=== PATIENT | male | born 1995 | race African-American/Black ===

== ENCOUNTER 2020-05-02 06:22 | Emergency (ER) | payer MEDICAID ==
[2020-05-02] MEDS ORDERED: Alum Hydrox/Mag Hydrox/Simeth 15 ML, Lidocaine 2% 5 ML PO ONE ×2 (07:03)
[2020-05-02] MEDS ORDERED: Hydrogen Peroxide 3% Top Soln 473 ML Bottle MUCMEM ONE (07:05)
--- NOTE | 2020-05-02 07:10 | EDM.PDOC ---
ED HPI GENERAL MEDICAL PROBLEM - General Chief Complaint: Gastrointestinal Problem Stated Complaint: VOMITING Time Seen by Provider: 05/02/20 07:00 Source of Information: Reports: Patient - History of Present Illness INITIAL COMMENTS - FREE TEXT/NARRATIVE: Patient is a 25-year-old male who presents today for nausea vomiting. Patient states that last night he drank a large amount of tequila and woke up this morning with stomachaches and vomiting. Patient denies any drug use denies fall and hit his head fevers chills or other complaints. Generalized Pain Score (Numeric/FACES): 5 - Related Data Allergies Allergy/AdvReac Type Severity Reaction Status Date / Time No Known Allergies Allergy Verified 05/02/20 06:46 Home Meds: Home Meds . [No Known Home Meds] 05/02/20 [History] Past Medical History - Past Health History Medical/Surgical History: Denies Medical/Surgical History Social & Family History - Family History Family Medical History: No Pertinent Family History - Tobacco Use Tobacco Use Status *Q: Never Tobacco User Second Hand Smoke Exposure: No - Recreational Drug Use Recreational Drug Use: No ED ROS GENERAL - Review of Systems Review Of Systems: See Below Constitutional: Reports: No Symptoms HEENT: Reports: No Symptoms Respiratory: Reports: No Symptoms Cardiovascular: Reports: No Symptoms Endocrine: Reports: No Symptoms GI/Abdominal: Reports: Abdominal Pain, Nausea, Vomiting : Reports: No Symptoms Musculoskeletal: Reports: No Symptoms Skin: Reports: No Symptoms Neurological: Reports: No Symptoms Psychiatric: Reports: No Symptoms Hematologic/Lymphatic: Reports: No Symptoms Immunologic: Reports: No Symptoms ED EXAM, GENERAL - Physical Exam Exam: See Below Exam Limited By: No Limitations General Appearance: Alert, No Apparent Distress Eye Exam: Bilateral Eye: EOMI, PERRL Ears: Normal External Exam Respiratory/Chest: No Respiratory Distress, Lungs Clear Cardiovascular: Regular Rate, Rhythm GI/Abdominal: Normal Bowel Sounds, Soft, Non-Tender Extremities: Normal Range of Motion Neurological: Alert, Oriented, CN II-XII Intact, Normal Cognition, Normal Gait Course - Vital Signs Last Recorded V/S: Last Vital Signs Temp 97.0 F 05/02/20 06:42 Pulse 89 05/02/20 06:42 Resp 16 05/02/20 06:42 BP 126/103 H 05/02/20 06:42 Pulse Ox 98 05/02/20 06:42 - Orders/Labs/Meds Labs: Laboratory Tests 05/02/20 05/02/20 05/02/20 Range/Units 07:28 07:28 07:28 WBC 9.44 (4.0-11.0) K/uL RBC 4.70 (4.50-5.90) M/uL Hgb 14.9 (13.0-17.0) g/dL Hct 45.5 (38.0-50.0) % MCV 96.8 (80.0-98.0) fL MCH 31.7 (27.0-32.0) pg MCHC 32.7 (31.0-37.0) g/dL RDW Std Deviation 46.7 (28.0-62.0) fl RDW Coeff of Kiet 13 (11.0-15.0) % Plt Count 262 (150-400) K/uL MPV 10.50 (7.40-12.00) fL Neut % (Auto) 78.5 (48.0-80.0) % Lymph % (Auto) 15.8 L (16.0-40.0) % Karnes % (Auto) 5.3 (0.0-15.0) % Eos % (Auto) 0.3 (0.0-7.0) % Baso % (Auto) 0.1 (0.0-1.5) % Neut # (Auto) 7.4 H (1.4-5.7) K/uL Lymph # (Auto) 1.5 (0.6-2.4) K/uL Karnes # (Auto) 0.5 (0.0-0.8) K/uL Eos # (Auto) 0.0 (0.0-0.7) K/uL Baso # (Auto) 0.0 (0.0-0.1) K/uL Nucleated RBC % 0.0 /100WBC Nucleated RBCs # 0 K/uL Sodium 145 (136-148) mmol/L Potassium 4.0 (3.5-5.1) mmol/L Chloride 104 (98-107) mmol/L Carbon Dioxide 31.2 (21.0-32.0) mmol/L BUN 11 (7.0-18.0) mg/dL Creatinine 1.2 (0.8-1.3) mg/dL Est Cr Clr Drug Dosing 99.35 mL/min Estimated GFR (MDRD) > 60.0 ml/min Glucose 107 H (74-106) mg/dL Calcium 9.3 (8.5-10.1) mg/dL Total Bilirubin 0.4 (0.2-1.0) mg/dL AST 52 H (15-37) IU/L ALT 126 H (14-63) IU/L Alkaline Phosphatase 71 (46-116) U/L Total Protein 8.3 H (6.4-8.2) g/dL Albumin 4.6 (3.4-5.0) g/dL Globulin 3.7 (2.6-4.0) g/dL Albumin/Globulin Ratio 1.2 (0.9-1.6) Ethyl Alcohol 13 mg/dL Meds: Medications Discontinued Medications Generic Name Dose Route Start Last Admin Trade Name Freq PRN Reason Stop Dose Admin Al Hydroxide/Mg Hydroxide 15 0 ml 05/02/20 07:03 05/02/20 07:18 ml/ Lidocaine HCl 5 ml PO 05/02/20 07:04 1 each ONETIME ONE Administration Hydrogen Peroxide 5 ml 05/02/20 07:05 05/02/20 07:18 Hydrogen Peroxide MUCMEM 05/02/20 07:06 1 dose ONETIME ONE Administration Ondansetron HCl 4 mg 05/02/20 07:11 05/02/20 07:18 Zofran Odt PO 05/02/20 07:12 4 mg ONETIME ONE Administration - Re-Assessments/Exams Free Text/Narrative Re-Assessment/Exam: 05/02/20 08:15 Labs reviewed and patient feels better after medications. Patient will be discharged home told to stay hydrated. Departure - Departure Time of Disposition: 08:16 Disposition: Home, Self-Care 01 Condition: Good Clinical Impression: General medical examination, Hangover effect - Discharge Information *PRESCRIPTION DRUG MONITORING PROGRAM REVIEWED*: Not Applicable *COPY OF PRESCRIPTION DRUG MONITORING REPORT IN PATIENT AMANDO: Not Applicable Instructions: Dehydration, Adult, [id number], Viral Gastroenteritis, Adult, [id number] Referrals: PCP,None [Primary Care Provider] - Forms: ED Department Discharge Additional Instructions: The following information is given to patients seen in the emergency department who are being discharged to home. This information is to outline your options for follow-up care. We provide all patients seen in our emergency department with a follow-up referral. The need for follow-up, as well as the timing and circumstances, are variable depending upon the specifics of your emergency department visit. If you don't have a primary care physician on staff, we will provide you with a referral. We always advise you to contact your personal physician following an emergency department visit to inform them of the circumstance of the visit and for follow-up with them and/or the need for any referrals to a consulting specialist. The emergency department will also refer you to a specialist when appropriate. This referral assures that you have the opportunity for follow-up care with a specialist. All of these measure are taken in an effort to provide you with optimal care, which includes your follow-up. Under all circumstances we always encourage you to contact your private physician who remains a resource for coordinating your care. When calling for follow-up care, please make the office aware that this follow-up is from your re cent emergency room visit. If for any reason you are refused follow-up, please contact the [facility] Emergency Department at and asked to speak to the emergency department charge nurse. Please follow up with your primary care physician. If you do not have a primary care physician, see below: [facility] [address] [place] [id number] [facility] [address] [place] [address] All of your primary care physician if you have any more complaints. You have any episodes of not being able to tolerate food or liquids by mouth please return to the ED. Sepsis Event Note (ED) - Evaluation Sepsis Screening Result: No Definite Risk - Focused Exam Vital Signs: Vital Signs Temp Pulse Resp BP Pulse Ox 05/02/20 06:42 97.0 F 89 16 126/103 H 98 - Assessment/Plan Plan: Patient is a 25-year-old male presents today for nausea vomiting lizeth pain. Patient states he took large amount of tequila last night. Patient has no signs of trauma or injury on exam patient is ANO x3 will give nausea medication check labs and reassess.
[2020-05-02] MEDS ORDERED: Ondansetron 4 MG Tab.DIS PO ONE (07:11)
[2020-05-02 08:12] LABS: BLOOD UREA NITROGEN,BUN 11 mg/dL (7.0-18.0); CARBON DIOXIDE,CO2 31.2 mmol/L (21.0-32.0); CHLORIDE,CL 104 mmol/L (98-107); GLUCOSE RANDOM 107 mg/dL (74-106); SODIUM,NA 145 mmol/L (136-148)
== END 2020-05-02 08:23 | disposition home or self-care (01) ==
LOC: MW.ED 06:22
DX: F10.129 Alcohol abuse with intoxication, unspecified (principal); Y90.0 Blood alcohol level of less than 20 mg/100 ml
CPT/HCPCS: 36415; 80053; 80307; 85025; 99284; A9270; 99283